=== PATIENT | male | born 1995 | race Caucasian/White ===

== ENCOUNTER 2019-02-21 13:04 | Emergency (ER) | payer OTHER ==
[2019-02-21] MEDS ORDERED: ASPIRIN 81 MG TABLET, CHEWABLE PO ONE (14:21)
--- NOTE | 2019-02-21 14:22 | ER Document Report ---
ED Medical Screen (RME) - General Chief Complaint: Chest Pain Stated Complaint: CHEST PAIN Time Seen by Provider: 02/21/19 14:15 Mode of Arrival: Ambulatory Information source: Patient Notes: 23-year-old male presents to ED for complaint of chest pain since Tuesday. [facility]oc[facility]. Patient states he is also had diarrhea since Tuesday. Patient states he does not have any history of any cardiac problems. He states his grandparents have had a history of cardiac problems but he has not. Patient is alert oriented respirations regular and unlabored speaking in full sentences lungs are clear to auscultation. He does smoke 1/2 pack a day drinks weekly smokes pot. I have greeted and performed a rapid initial assessment of this patient. A co mprehensive ED assessment and evaluation of the patient, analysis of test results and completion of medical decision making process will be conducted by an additional ED providers. Dictation of this chart was performed using voice recognition software; therefore, there may be some unintended grammatical errors. TRAVEL OUTSIDE OF THE [place] IN LAST 30 DAYS: No - Related Data Allergies/Adverse Reactions: No Known Allergies Allergy (Verified 02/21/19 13:06) Past Medical History - Social History Frequency of alcohol use: None Drug Abuse: Marijuana Renal/ Medical History: Denies: Hx Peritoneal Dialysis Past Surgical History: Reports: Hx Tonsillectomy - Immunizations Immunizations up to date: Yes Hx Diphtheria, Pertussis, Tetanus Vaccination: Yes Physical Exam - Vital signs Vitals: Temp Pulse Resp BP Pulse Ox 98.1 F 72 16 112/76 97 02/21/19 13:10 02/21/19 13:10 02/21/19 13:10 02/21/19 13:10 02/21/19 13:10 Course - Vital Signs Vital signs: Temp Pulse Resp BP Pulse Ox 98.1 F 72 16 112/76 97 02/21/19 13:10 02/21/19 13:10 02/21/19 13:10 02/21/19 13:10 02/21/19 13:10
--- NOTE | 2019-02-21 14:49 | RADIOLOGY REPORT (SQ) ---
EXAM DESCRIPTION: CHEST 2 VIEWS COMPLETED DATE/TIME: 02/21/2019 2:40 pm REASON FOR STUDY: chest pain since tuesday COMPARISON: None. EXAM PARAMETERS: NUMBER OF VIEWS: two views TECHNIQUE: Digital Frontal and Lateral radiographic views of the chest acquired. RADIATION DOSE: NA LIMITATIONS: none FINDINGS: LUNGS AND PLEURA: No opacities, masses or pneumothorax. No pleural effusion. MEDIASTINUM AND HILAR STRUCTURES: No masses or contour abnormalities. HEART AND VASCULAR STRUCTURES: Heart normal size. No evidence for failure. BONES: No acute findings. HARDWARE: None in the chest. OTHER: No other significant finding. IMPRESSION: NO ACUTE RADIOGRAPHIC FINDING IN THE CHEST. TECHNICAL DOCUMENTATION: JOB ID: [id number] [employer]- All Rights Reserved Reading location - IP/workstation name: [email or web address]
[2019-02-21 15:08] LABS: ABSOLUTE EOSINOPHILS # (AUTO) 0.1 10^3/uL (0.0-0.6); ABSOLUTE LYMPHOCYTES (AUTO) 1.1 10^3/uL (0.5-4.7); ABSOLUTE MONOCYTES (AUTO) 0.8 10^3/uL (0.1-1.4); ABSOLUTE NEUT (AUTO) 2.6 10^3/uL (1.7-8.2); BASOPHILS % (AUTO) 0.7 % (0-2); EOSINOPHILS % (AUTO) 2.1 % (0-6); HEMATOCRIT 50.7 % (37.9-51.0); HEMOGLOBIN 17.4 g/dL (13.5-17.0); LYMPHOCYTES % (AUTO) 24.4 % (13-45); MEAN CORPUSCULAR HEMOGLOBIN 32.8 pg (27.0-33.4); MEAN CORPUSCULAR HGB CONC 34.4 g/dL (32.0-36.0); MEAN CORPUSCULAR VOLUME 95 fl (80-97); MONOCYTES % (AUTO) 16.8 % (3-13); PLATELET COUNT 207 10^3/uL (150-450); RED BLOOD COUNT 5.31 10^6/uL (4.35-5.55); RED CELL DISTRIBUTION WIDTH 13.9 % (11.5-14.0); TOTAL CELLS COUNTED % (AUTO) 100 %; WHITE BLOOD COUNT 4.6 10^3/uL (4.0-10.5)
[2019-02-21 15:09] LABS: APPEARANCE,URINE CLEAR; BILIRUBIN,URINE NEGATIVE (NEGATIVE); COLOR,URINE YELLOW; GLUCOSE, URINE NEGATIVE (NEGATIVE); KETONES,URINE NEGATIVE (NEGATIVE); LEUKOCYTE ESTERASE,URINE NEGATIVE (NEGATIVE); NITRITE,URINE NEGATIVE (NEGATIVE); PROTEIN,URINE NEGATIVE (NEGATIVE); URINE SPECIFIC GRAVITY 1.005; UROBILINOGEN,URINE NEGATIVE mg/dL (<2.0)
[2019-02-21 15:25] LABS: URINE AMPHETAMINES SCREEN NEGATIVE; URINE BARBITURATES SCREEN NEGATIVE; URINE BENZODIAZEPINES SCREEN NEGATIVE; URINE COCAINE SCREEN NEGATIVE; URINE MARIJUANA (THC) SCREEN NEGATIVE; URINE METHADONE SCREEN NEGATIVE; URINE PHENCYCLIDINE SCREEN NEGATIVE
[2019-02-21 15:33] LABS: ALANINE AMINOTRANSFERASE 633 U/L (21-72); ALBUMIN 4.5 g/dL (3.5-5.0); ALKALINE PHOSPHATASE 170 U/L (38-126); ANION GAP 10 (5-19); BILIRUBIN,DIRECT 0.5 mg/dL (0.0-0.4); BILIRUBIN,TOTAL 1.7 mg/dL (0.2-1.3); BLOOD UREA NITROGEN 8 mg/dL (7-20); CALCIUM 9.8 mg/dL (8.4-10.2); CARBON DIOXIDE 31 mmol/L (22-30); CHLORIDE 99 mmol/L (98-107); GLUCOSE 91 mg/dL (75-110); LIPASE 113.8 U/L (23-300); POTASSIUM 4.3 mmol/L (3.6-5.0); SODIUM 140.4 mmol/L (137-145); TOTAL PROTEIN 7.5 g/dL (6.3-8.2)
[2019-02-21 15:40] LABS: ASPARTATE AMINO TRANSFERASE 837 U/L (17-59)
[2019-02-21 15:45] LABS: CREATINE KINASE MB 42.7 ng/mL (<4.55)
[2019-02-21 15:51] LABS: TROPONIN I 13.1 ng/mL
[2019-02-21] MEDS ORDERED: RINGERS SOLUTION,LACTATED 1,000 ML IV ONE (16:58)
--- NOTE | 2019-02-21 17:01 | RADIOLOGY REPORT (SQ) ---
EXAM DESCRIPTION: CTA CHEST COMPLETED DATE/TIME: 02/21/2019 4:47 pm REASON FOR STUDY: chest pain COMPARISON: None. TECHNIQUE: CT scan of the chest performed using helical scanning technique with dynamic intravenous contrast injection. Images reviewed with lung, soft tissue and bone windows. Reconstructed coronal and sagittal MPR images reviewed. Additional 3 dimensional post-processing performed to develop Maximal Intensity Projection images (MA P). All images stored on PACS. All CT scanners at this facility use dose modulation, iterative reconstruction, and/or weight based d osing when appropriate to reduce radiation dose to as low as reasonably achievable (ALARA). [facility]: Dose Right [facility]: CareDose [facility]: Dose Right [facility]: Teradose 4D [facility]: Solidmation CONTRAST TYPE AND DOSE: contrast/concentration: Isovue 350.00 mg/ml; Total Contrast Delivered: 67.0 ml; Total Saline Delivered: 80.0 ml Contrast bolus optimized for the pulmonary arteries. Not diagnostic for the aorta. RENAL FUNCTION: Creatinine: 0.96 RADIATION DOSE: CT Rad equipment meets quality standard of care and radiation dose reduction techniq ues were employed. CTDIvol: 14.5 - 24.8 mGy. DLP: 641 mGy-cm. . LIMITATIONS: None. FINDINGS: LUNGS AND PLEURA: No infiltrates or effusions. No pulmonary nodules. AORTA AND GREAT VESSELS: No aneurysm. Contrast bolus not optimized for the aorta. HEART: No pericardial effusion. No significant coronary artery calcifications. PULMONARY ARTERIES: N o pulmonary emboli. HILAR AND MEDIASTINAL STRUCTURES: No mediastinal or hilar adenopathy HARDWARE: None in the chest. UPPER ABDOMEN: The liver, spleen, adrenals demonstrate no abnormality. THYROID AND OTHER SOFT TISSUES: No abnormality. BONES: No acute or significant finding. 3D MIPS: Confirm above findings. IMPRESSION: NORMAL CTA OF THE CHEST. NO PULMONARY EMBOLI. COMMENT: Quality ID # [id number]: Final reports with documentation of one or more dose reduction techniques (e.g., Automated exposure control, adjustment of the mA and/or kV according to patient size, use of iterative reconstruction technique) TECHNICAL DOCUMENTATION: JOB ID: [id number] SC-[id number] [employer]- All Rights Reserved Reading location - IP/workstation name: [email or web address]
--- NOTE | 2019-02-21 18:50 | ER Document Report ---
ED General - General Chief Complaint: Chest Pain Stated Complaint: CHEST PAIN Time Seen by Provider: 02/21/19 14:15 Primary Care Provider: [facility] [Primary Care Provider] - Follow up as needed Mode of Arrival: Ambulatory Notes: Patient is a 23-year-old male that presents to the emergency department for chief complaint of chest pain. [facility] was at the [facility], being worked up for chest pain at the clinic today, the included a troponin and his blood work, that was remarkably high at 16, they also did lipid panels thyroid testing and the battery of other tests that seem to be unremarkable. He states that the pain came on and off over the weekend it did start on Tuesday, he had some mild a ssociated nausea but no vomiting or diaphoresis. Today was the worst when he was driving earlier today he states the pain was substernal he described as a 9 out of 10, it eventually did relieve itself on its own. Nothing seemed to make it better or worse when this does come on. It was not better with lying down or leaning forward. He felt somewhat short of breath and the pain seemed to be somewhat worse with a deep breath. Here he denies any fevers, chills, night sweats, urinary symptoms, but admits to having some diarrhea last week but that is since resolved. Denies any congestion or upper respiratory tract infection symptoms over the past month. Denies family history of early coronary disease. Past Medical History: Denies chronic medical conditions Past Surgical History: Denies surgical history Social History: Admits to smoking tobacco daily, rare alcohol use, admits to occasional marijuana use. Family History: Reviewed and noncontributory for presenting illness Allergies: Reviewed, see documented allergy list. REVIEW OF SYSTEMS: Other than noted above, the 12 point review of systems was reviewed with the patient and were negative, all pertinent findings are included in the HPI. PHYSICAL EXAMINATION: Vital signs reviewed, nursing noted reviewed. GENERAL: Well-appearing, well-nourished and in no acute distress. HEAD: Atraumatic, normocephalic. EYES: Eyes appear normal, extraocular movements intact, sclera anicteric, conjunctiva are normal. ENT: nares patent, oropharynx clear without exudates. Moist mucous membranes. NECK: Normal range of motion, supple without lymphadenopathy LUNGS: Breath sounds clear to auscultation bilaterally and equal. No wheezes rales or rhonchi. HEART: Regular rate and rhythm without murmurs ABDOMEN: Soft, nontender, normoactive bowel sounds. No rebound, guarding, or rigidity. No masses appreciated. EXTREMITIES: Nontender, good range of motion, no pitting or edema. NEUROLOGICAL: No focal neurological deficits. Moves all extremities spontaneously Motor and sensory grossly intact on exam. PSYCH: Normal mood, normal affect. SKIN: Warm, Dry, normal turgor, no rashes or lesions noted on exposed skin TRAVEL OUTSIDE OF THE [place] IN LAST 30 DAYS: No - Related Data Allergies/Adverse Reactions: No Known Allergies Allergy (Verified 02/21/19 13:06) Past Medical History - General Information source: Patient - Social History Smoking Status: Current Every Day Smoker Frequency of alcohol use: None Drug Abuse: Marijuana Family History: Reviewed & Not Pertinent Patient has suicidal ideation: No Patient has homicidal ideation: No Renal/ Medical History: Denies: Hx Peritoneal Dialysis Past Surgical History: Reports: Hx Tonsillectomy - Immunizations Immunizations up to date: Yes Hx Diphtheria, Pertussis, Tetanus Vaccination: Yes Physical Exam - Vital signs Vitals: Temp Pulse Resp BP Pulse Ox 98.1 F 72 16 112/76 97 02/21/19 13:10 02/21/19 13:10 02/21/19 13:10 02/21/19 13:10 02/21/19 13:10 Course - Re-evaluation Re-evalutation: Patient seen and examined vital signs reviewed. Laboratory data and imaging were ordered as appropriate for the patient's presenting symptoms and complaint, with consideration of any critical or life threatening conditions that may be associated with their obtained history and exam as noted above. Patient was treated with IV fluids, and given 324 mg of aspirin Results were reviewed when available and demonstrated elevated troponin of 13, repeat after 3 hours did increase to 14.5, and stabilized to 14.5 on his third troponin. Patient intermittently did have some chest discomfort, and repeat EKGs were unchanged as well. Bedside echo was performed as noted and procedure section, appeared to have a normal EF of 55 to 60%, no obvious wall motion abnormalities, and no pericardial effusion was noted. CT angiogram of the chest was ordered and was negative for pulmonary embolism, his other blood work did demonstrate transaminitis, of unclear etiology, mono testing was ordered and was negative as well. The patient was re-evaluated and was stable Evaluation was most consistent with NSTEMI, unclear etiology, possible myocarditis versus primary coronary disease, I discussed this case with the diet aide at [facility], Dr. Thompson who accepted the patient under their service, and recommended IV fluids at this point we want to avoid any further anticoagulation, or antiplatelets due to possible pericarditis/myocarditis, which would lead to possible bleeding into the pericardium. Results were discussed with the patient at this point after careful consideration I feel that that patient should be transferred to [] due to []. This was discussed with the patient that it is in the best interest for their care to be transferred, the risks and benefits of transfer were discussed, including but not limited to clinical deterioration during transport, respiratory distress, and potential for traumatic injuries. Patient agreed with this plan of care. *Note is created using voice recognition software and may contain spelling, syntax or grammatical errors. Laboratory 02/21/19 02/21/19 02/21/19 14:50 14:50 14:50 WBC 4.6 RBC 5.31 Hgb 17.4 H Hct 50.7 MCV 95 MCH 32.8 MCHC 34.4 RDW 13.9 Plt Count 207 Seg Neutrophils % 56.0 Lymphocytes % 24.4 Monocytes % 16.8 H Eosinophils % 2.1 Basophils % 0.7 Absolute Neutrophils 2.6 Absolute Lymphocytes 1.1 Absolute Monocytes 0.8 Absolute Eosinophils 0.1 Absolute Basophils 0.0 Sodium 140.4 Potassium 4.3 Chloride 99 Carbon Dioxide 31 H Anion Gap 10 BUN 8 Creatinine 0.96 Est GFR ( Amer) > 60 Est GFR (Non-Af Amer) > 60 Glucose 91 Calcium 9.8 Total Bilirubin 1.7 H Direct Bilirubin 0.5 H Neonat Total Bilirubin Not Reportable Neonat Direct Bilirubin Not Reportable Neonat Indirect Bili Not Reportable AST 837 H ALT 633 H Alkaline Phosphatase 170 H CK-MB (CK-2) 42.70 H Troponin I 13.100 NT-Pro-B Natriuret Pep Total Protein 7.5 Albumin 4.5 Lipase 113.8 Urine Color Urine Appearance Urine pH Ur Specific [place] Urine Protein Urine Glucose (UA) Urine Ketones Urine Blood Urine Nitrite Urine Bilirubin Urine Urobilinogen Ur Leukocyte Esterase Urine WBC (Auto) Urine RBC (Auto) Urine Mucus (Auto) Urine Ascorbic Acid Urine Opiates Screen Urine Methadone Screen Ur Barbiturates Screen Ur Phencyclidine Scrn Ur Amphetamines Screen U Benzodiazepines Scrn Urine Cocaine Screen U Marijuana (THC) Screen Monotest 02/21/19 02/21/19 02/21/19 14:50 14:50 14:50 WBC RBC Hgb Hct MCV MCH MCHC RDW Plt Count Seg Neutrophils % Lymphocytes % Monocytes % Eosinophils % Basophils % Absolute Neutrophils Absolute Lymphocytes Absolute Monocytes Absolute Eosinophils Absolute Basophils Sodium Potassium Chloride Carbon Dioxide Anion Gap BUN Creatinine Est GFR ( Amer) Est GFR (Non-Af Amer) Glucose Calcium Total Bilirubin Direct Bilirubin Neonat Total Bilirubin Neonat Direct Bilirubin Neonat Indirect Bili AST ALT Alkaline Phosphatase CK-MB (CK-2) Troponin I NT-Pro-B Natriuret Pep Total Protein Albumin Lipase Urine Color YELLOW Urine Appearance CLEAR Urine pH 6.0 Ur Specific [place] 1.005 Urine Protein NEGATIVE Urine Glucose (UA) NEGATIVE Urine Ketones NEGATIVE Urine Blood NEGATIVE Urine Nitrite NEGATIVE Urine Bilirubin NEGATIVE Urine Urobilinogen NEGATIVE Ur Leukocyte Esterase NEGATIVE Urine WBC (Auto) 3 Urine RBC (Auto) 0 Urine Mucus (Auto) RARE Urine Ascorbic Acid NEGATIVE Urine Opiates Screen NEGATIVE Urine Methadone Screen NEGATIVE Ur Barbiturates Screen NEGATIVE Ur Phencyclidine Scrn NEGATIVE Ur Amphetamines Screen NEGATIVE U Benzodiazepines Scrn NEGATIVE Urine Cocaine Screen NEGATIVE U Marijuana (THC) Screen NEGATIVE Monotest NEGATIVE 02/21/19 02/21/19 02/21/19 16:00 16:00 20:45 WBC RBC Hgb Hct MCV MCH MCHC RDW Plt Count Seg Neutrophils % Lymphocytes % Monocytes % Eosinophils % Basophils % Absolute Neutrophils Absolute Lymphocytes Absolute Monocytes Absolute Eosinophils Absolute Basophils Sodium Potassium Chloride Carbon Dioxide Anion Gap BUN Creatinine Est GFR ( Amer) Est GFR (Non-Af Amer) Glucose Calcium Total Bilirubin Direct Bilirubin Neonat Total Bilirubin Neonat Direct Bilirubin Neonat Indirect Bili AST ALT Alkaline Phosphatase CK-MB (CK-2) Troponin I 14.500 Cancelled 14.500 NT-Pro-B Natriuret Pep 346 H Total Protein Albumin Lipase Urine Color Urine Appearance Urine pH Ur Specific [place] Urine Protein Urine Glucose (UA) Urine Ketones Urine Blood Urine Nitrite Urine Bilirubin Urine Urobilinogen Ur Leukocyte Esterase Urine WBC (Auto) Urine RBC (Auto) Urine Mucus (Auto) Urine Ascorbic Acid Urine Opiates Screen Urine Methadone Screen Ur Barbiturates Screen Ur Phencyclidine Scrn Ur Amphetamines Screen U Benzodiazepines Scrn Urine Cocaine Screen U Marijuana (THC) Screen Monotest Chest X-Ray 02/21/19 14:20 IMPRESSION: NO ACUTE RADIOGRAPHIC FINDING IN THE CHEST. Chest/Abdomen CTA 02/21/19 16:27 IMPRESSION: NORMAL CTA OF THE CHEST. NO PULMONARY EMBOLI. - Vital Signs Vital signs: Temp Pulse Resp BP Pulse Ox 98.4 F 72 16 112/63 99 02/21/19 16:50 02/21/19 13:10 02/21/19 21:01 02/21/19 21:00 02/21/19 21:01 - Laboratory Result Diagrams: 02/21/19 14:50 02/21/19 14:50 Laboratory results interpreted by me: 02/21/19 02/21/19 02/21/19 14:50 14:50 14:50 Hgb 17.4 H Monocytes % 16.8 H Carbon Dioxide 31 H Total Bilirubin 1.7 H Direct Bilirubin 0.5 H AST 837 H ALT 633 H Alkaline Phosphatase 170 H CK-MB (CK-2) 42.70 H NT-Pro-B Natriuret Pep 02/21/19 16:00 Hgb Monocytes % Carbon Dioxide Total Bilirubin Direct Bilirubin AST ALT Alkaline Phosphatase CK-MB (CK-2) NT-Pro-B Natriuret Pep 346 H - EKG Interpretation by Me Additional EKG results interpreted by me: EKG demonstrates sinus rhythm with a ventricular rate of 63 bpm, normal axis, normal intervals, there is early repolarization noted in leads II, III and aVF, as well as V4 through V6, there is a T wave inversion noted in lead aVL, this is compared with a prior EKG from 02/21/2019, 8:55 AM, without significant change. 02/21/19 20:35 Repeat EKG demonstrates sinus rhythm with a ventricular rate of 57 bpm, normal axis, normal intervals, there is J-point elevation again in leads II, 3, aVF, a nd mildly in V4, V5 and V6, this is compared with his prior EKG from earlier in his ED course, without significant change. Procedures - Ultrasound/Bedside Ultrasound/Bedside Ultrasound: Other - BEDSIDE ECHOCARDIOGRAM: Notes: Bedside echocardiac was performed: Indication: Chest pain Findings: EF was approximately 55 to 60% on evaluation, no obvious valvular abnormalities, no pericardial effusion noted, patient was imaged in parasternal long and short axis views, images were obtained and placed in the chart. Critical Care Note - Critical Care Note Total time excluding time spent on procedures (mins): 45 Comments: Critical care time 45 minutes exclusive from separate billable procedures for a patient requiring complex medical decision making, and high potential for clinical deterioration. In a young patient, with markedly elevated troponin, requiring close monitoring, high potential for deterioration. Time spent obtaining history from patient or surrogate, discussions with consultants, development of treatment plan with patient or surrogate, evaluation of patient's response to treatment, examination of patient, ordering and performing treatments and interventions, ordering and review of laboratory studies, re- evaluation of patient's condition, ordering and review of radiographic studies and review of old charts Discharge - Discharge Clinical Impression: NSTEMI (non-ST elevated myocardial infarction), Transaminitis Condition: Stable Disposition: [facility]errals: [facility] [Primary Care Provider] - Follow up as needed
--- NOTE | 2019-02-21 22:21 | EKG REPORT ---
SEVERITY:- NORMAL ECG - SINUS RHYTHM ST ELEV, PROBABLE NORMAL EARLY REPOL PATTERN : Confirmed by: Dana Aviles MD 21-Feb-2019 22:19:57
[2019-02-22] MEDS ORDERED: NORMAL SALINE 1000 ML 1,000 ML IV ONE (03:26)
[2019-02-22 09:04] VITALS: BP 119/82
--- NOTE | 2019-02-22 09:13 | ER Document Report ---
ED General - General Chief Complaint: Chest Pain Stated Complaint: CHEST PAIN Time Seen by Provider: 02/21/19 14:15 Primary Care Provider: [facility] [[facility]] - Follow up as needed Mode of Arrival: Ambulatory Notes: This patient was admitted overnight and decided to be transferred to [facility] for an abnormal troponin. I came it 8 AM and evaluated the patient as he was waiting for transfer to [facility]. He still complains of chest pain, central symptoms with his breathing and sometimes not. He has no shortness of breath or vomiting. I reviewed his overnight data which showed an elevated troponin of 15 which seems to have peaked. I also looked at his 2 EKGs from last night. Patient, per the note by Dr. Pascal, it was accepted by cardiology. TRAVEL OUTSIDE OF THE [place] IN LAST 30 DAYS: No - Related Data Allergies/Adverse Reactions: No Known Allergies Allergy (Verified 02/21/19 13:06) Past Medical History - General Information source: Patient - Social History Smoking Status: Current Every Day Smoker Frequency of alcohol use: None Drug Abuse: Marijuana Family History: Reviewed & Not Pertinent Patient has suicidal ideation: No Patient has homicidal ideation: No Renal/ Medical History: Denies: Hx Peritoneal Dialysis Past Surgical History: Reports: Hx Tonsillectomy - Immunizations Immunizations up to date: Yes Hx Diphtheria, Pertussis, Tetanus Vaccination: Yes Review of Systems - Review of Systems Notes: REVIEW OF SYSTEMS GEN: Denies fever, chills, weight loss ENT: Denies sore throat, nasal discharge, ear pain EYES: Denies blurry vision, eye pain, discharge CV: Pain, left chest sometimes on inspiration RESP: Denies cough, shortness of breath, wheezing GI: Denies abdominal pain, nausea, vomiting, diarrhea MSK: Denies joint pain/swelling, edema, SKIN: Denies rash, skin lesions LYMPH: Denies swollen glands/lymph nodes NEURO: Denies headache, focal weakness or numbness, dizziness PSYCH: Denies depression, suicidal or homicidal ideation PHYSICAL EXAMINATION General: No acute distress, well-nourished Head: Atraumatic, normocephalic ENT: Mouth normal, oropharynx moist, no exudates or tonsillar enlargement Eyes: Conjunctiva normal, pupils equal, lids normal Neck: No JVD, supple, no guarding CVS: Normal rate, regular rhythm, no murmurs, no rub auscultated Resp: No resp distress, equal and normal breath sounds bilaterally GI: Nondistended, soft, no tenderness to palpation, no rebound or guarding Ext: No deformities, no edema, normal range of motion in upper and lower ext Back: No CVA or midline TTP Skin: No rash, warm Lymphatic: No lymphadeopathy noted Neuro: Awake, alert. Face symmetric. GCS 15. Physical Exam - Vital signs Vitals: Temp Pulse Resp BP Pulse Ox 98.1 F 72 16 112/76 97 02/21/19 13:10 02/21/19 13:10 02/21/19 13:10 02/21/19 13:10 02/21/19 13:10 Course - Re-evaluation Re-evalutation: 02/22/19 09:19 Patient seen and evaluated by me after being transferred by the overnight physician. On review of his symptoms, EKG, I am more concerned for a STEMI. Although I do believe ultimately he will be diagnosed with pericarditis, he does meet criteria for STEMI given his ST elevation in 3 contiguous leads, presence of ST depression which should not be seen in pericarditis, and lack of [place] depression. His troponin seems to have peaked at 15 but he has ongoing pain I brooke boyle he meets criteria for emergent Lead Presser activation. I spoke with the transfer center at [facility] about 8:30 AM. I spoke with Dr. Pearl from cardiology, who agrees with my assessment and is accepted the patient is a code cardiac 1. The helicopter arrived at 9:15 AM, and the patient was transferred emergently to [facility]er for further management. - Vital Signs Vital signs: Temp Pulse Resp BP Pulse Ox 98.1 F 72 15 119/82 98 02/22/19 09:00 02/21/19 13:10 02/22/19 09:01 02/22/19 09:00 02/22/19 09:01 - Laboratory Result Diagrams: 02/21/19 14:50 02/21/19 14:50 Laboratory results interpreted by me: 02/21/19 02/21/19 02/21/19 14:50 14:50 14:50 Hgb 17.4 H Monocytes % 16.8 H Carbon Dioxide 31 H Total Bilirubin 1.7 H Direct Bilirubin 0.5 H AST 837 H ALT 633 H Alkaline Phosphatase 170 H CK-MB (CK-2) 42.70 H NT-Pro-B Natriuret Pep 02/21/19 16:00 Hgb Monocytes % Carbon Dioxide Total Bilirubin Direct Bilirubin AST ALT Alkaline Phosphatase CK-MB (CK-2) NT-Pro-B Natriuret Pep 346 H - Diagnostic Test Radiology reviewed: Image reviewed, Reports reviewed - EKG Interpretation by Me EKG shows normal: Sinus rhythm Rate: Normal Rhythm: NSR When compared to previous EKG there are: Changes noted - ST elevation of 1 mm, concave, although with an abnormal angle of takeoff of the ST segment in leads II, III and aVF unchanged throughout 3 serial EKGs. Worsening T wave peaking and enlargement consistent with hyperacute T waves in the precordial leads on most recent EKG this morning. Critical Care Note - Critical Care Note Total time excluding time spent on procedures (mins): 32 Comments: The above patient is critically ill. Not including procedures, but including direct re-evaluations, speaking with patient and/or consultants, interpreting results, and documenting, I spent the total amount of minute listed listed above on critical care time Discharge - Discharge Clinical Impression: NSTEMI (non-ST elevated myocardial infarction), Transaminitis Condition: Critical Disposition: [facility]errals: [facility] [Primary [facility]] - Follow up as needed
--- NOTE | 2019-02-22 16:18 | EKG REPORT ---
SEVERITY:- NORMAL ECG - SINUS RHYTHM ST ELEV, PROBABLE NORMAL EARLY REPOL PATTERN : Confirmed by: Dana Aviles MD 22-Feb-2019 16:17:02
--- NOTE | 2019-02-22 16:18 | EKG REPORT ---
SEVERITY:- NORMAL ECG - SINUS RHYTHM ST ELEV, PROBABLE NORMAL EARLY REPOL PATTERN : Confirmed by: Dana Aviles MD 22-Feb-2019 16:16:57
== END 2019-02-22 09:20 | disposition short-term general hospital (02) ==
LOC: ER 13:04
DX: I21.4 Non-ST elevation (NSTEMI) myocardial infarction (principal); R74.0 Nonspecific elevation of levels of transaminase and lactic acid dehydrogenase [LDH]; R07.9 Chest pain, unspecified; R11.0 Nausea; F17.210 Nicotine dependence, cigarettes, uncomplicated
CPT/HCPCS: 93005 ×2; 99291; 96360; 96361; 36415; 82553; 83690; 85025; 86308; 80053; 81001; 84484; 80307; 83880; 71046; 71275; 93010 ×2; J7030; J7120